=== PATIENT | male | born 1980 | race Two or more races ===

== ENCOUNTER 2020-11-17 17:10 | Emergency (ER) | payer OTHER ==
[~2020-11-17] VITALS: Ht 190.5 cm; Wt 81.6 kg
== END 2020-11-17 20:05 | disposition home or self-care (01) ==
LOC: ER 17:10
DX: S56.812A Strain of other muscles, fascia and tendons at forearm level, left arm, initial encounter (principal); S43.492A Other sprain of left shoulder joint, initial encounter; X50.0XXA Overexertion from strenuous movement or load, initial encounter; Y93.89 Activity, other specified; Y92.89 Other specified places as the place of occurrence of the external cause; Y99.8 Other external cause status

== ENCOUNTER 2021-09-22 20:39 | Emergency (ER) | payer OTHER ==
[~2021-09-22] VITALS: Ht 188 cm; Wt 83.9 kg
== END 2021-09-22 22:57 | disposition home or self-care (01) ==
LOC: ER 20:39
DX: T78.1XXA Other adverse food reactions, not elsewhere classified, initial encounter (principal); T78.3XXA Angioneurotic edema, initial encounter; X58.XXXA Exposure to other specified factors, initial encounter; Z91.013 Allergy to seafood; Z91.018 Allergy to other foods